=== PATIENT | female | born 1945 | race Caucasian/White ===

== ENCOUNTER 2020-03-27 11:11 | Day surgery (SDC) | payer MEDICARE ==
[~2020-03-27] VITALS: Ht 160 cm; Wt 73.2 kg
[2020-03-27] MEDS ORDERED: LISI-600 PO (11:52)
[2020-03-27] MEDS ORDERED: METF-900 PO (11:52)
[2020-03-27] MEDS ORDERED: ZOLP5TAB2 PO (11:52)
[2020-03-27] MEDS ORDERED: ATOR10TA70 PO (11:52)
[2020-03-27] MEDS ORDERED: SYN0.088T PO (11:52)
[2020-03-27 12:01] VITALS: BP 135/72
[2020-03-27] MEDS ORDERED: normal saline 1000ml 1,000 ML IV SCH (12:51)
[2020-03-27 13:00] VITALS: BP 146/70
[2020-03-27 13:15] VITALS: BP 135/74
[2020-03-27 13:30] VITALS: BP 123/64
[2020-03-27 13:45] VITALS: BP 127/71
[2020-03-27 14:00] VITALS: BP 128/60
== END 2020-03-27 14:15 | disposition home or self-care (01) ==
LOC: SSTAY O 11:11
PROVIDERS: ATTEND Radiology Diagnostic Radiology
DX: R19.03 Right lower quadrant abdominal swelling, mass and lump (principal); C77.4 Secondary and unspecified malignant neoplasm of inguinal and lower limb lymph nodes; E78.00 Pure hypercholesterolemia, unspecified; I10 Essential (primary) hypertension; E03.9 Hypothyroidism, unspecified; G47.00 Insomnia, unspecified; E11.9 Type 2 diabetes mellitus without complications; Z90.710 Acquired absence of both cervix and uterus; Z85.89 Personal history of malignant neoplasm of other organs and systems; Z79.899 Other long term (current) drug therapy; Z79.84 Long term (current) use of oral hypoglycemic drugs; Z98.890 Other specified postprocedural states; Z90.49 Acquired absence of other specified parts of digestive tract; Z83.3 Family history of diabetes mellitus; Z82.49 Family history of ischemic heart disease and other diseases of the circulatory system; Z11.59 Encounter for screening for other viral diseases
CPT/HCPCS: 36415; 38505; 76942; 88184; 88185; U0003